=== PATIENT | female | born 1970 | race Caucasian/White ===

== ENCOUNTER 2017-07-25 13:12 | Inpatient (IN) ==
[2017-07-25 14:25] LABS: Basophils # 0.1 10*3/uL (0.0-0.2); Basophils % 0.4 % (0.0-0.8); Eosinophils # 0.1 10*3/uL (0.0-0.87); Eosinophils % 0.4 % (0.00-10.9); Hematocrit 43.8 VOL% (35.7-47.0); Hemoglobin 14.9 GM/DL (12.0-16.0); Immature Granulocytes % 0.2 %; Immature Granulocytes Absolute 0.03 #; Lymphocytes % 14.5 % (21.3-54.2); Mean Corpuscular Hemoglobin 32 PG (27-34); Mean Corpuscular Volume 94.6 FL (87-102); Mean Platelet Volume 10.7 FL (9.6-12.0); Monocytes # 0.5 10*3/uL (0.11-0.8); Monocytes % 3.7 % (1.7-12.7); Neutrophils # 11.2 10*3/uL (1.4-7.4); Neutrophils % 80.8 % (38.7-73.9); Platelet Count 317 T/CUMM (130-400); Red Blood Count 4.63 MC/CUMM (3.8-5.5); Red Cell Distribution Width 14.4 % (9.3-17.3); White Blood Count 13.9 T/CUMM (4-12)
[2017-07-25] MEDS ORDERED: ALBUTEROL NEB SOLN 5 MG/ML 20 ML/BOTTLE CONT NEB STA (14:31)
[2017-07-25] MEDS ORDERED: methylPREDNISolone SOD SUC 125 MG/2 ML VIAL IV STA (14:31)
[2017-07-25 14:49] LABS: Alanine Aminotransferase 12 U/L (13-56); Albumin 3.4 G/DL (3.4-5.0); Alkaline Phosphatase 66 U/L (45-117); Aspartate Amino Transferase 12 U/L (0-37); Bilirubin,Total < 0.39 MG/DL (0.2-1.0); Blood Urea Nitrogen 9 MG/DL (7-18); Calcium 8.8 MG/DL (8.5-10.1); Glucose 103 MG/DL (74-106); Osmolality,Calculated 281.1 MOS/KG (273-304); Sodium 142 MMOL/L (136-145); Total Protein 7.3 G/DL (6.4-8.3); Troponin I Only 0.037 NG/ML (0.00-0.045)
[2017-07-25 15:23] LABS: ABG Base Excess 1.8 MMOL/L (-2.5-2.5); ABG HCO3 25.2 MMOL/L (20-26); ABG Oxygen Saturation 64.3 % (95-100); ABG PCO2 42.9 MM HG (35-48); ABG PH 7.405 (7.35-7.45); ABG TCO2 23.3 MMOL/L (23-27)
[2017-07-25 15:36] LABS: ABG PO2 32.7 MM HG (80-95)
[2017-07-25] MEDS ORDERED: ONDANSETRON 4 MG/2 ML VIAL IV PRN (17:18)
[2017-07-25] MEDS ORDERED: MORPHINE 4 MG/1 ML VIAL IV PRN (17:18)
[2017-07-25] MEDS ORDERED: ALBUTEROL/IPRATROPIUM 3 ML NEB RESP TX PRN (19:01)
[2017-07-25] MEDS ORDERED: NICOTINE 21 MG/24 HR PATCH TRANSDERM PRN (19:03)
[2017-07-25] MEDS ORDERED: methylPREDNISolone SOD SUC 125 MG/2 ML VIAL IV ONE (20:05)
[2017-07-25 20:30] LABS: ABG HCO3 21.1 MMOL/L (20-26); ABG Oxygen Saturation 99.4 % (95-100); ABG PCO2 35.1 MM HG (35-48); ABG PH 7.374 (7.35-7.45); ABG TCO2 17.7 MMOL/L (23-27)
[2017-07-25] MEDS: ACETAMINOPHEN 325 MG TABLET PO PRN (20:50)
[2017-07-25] MEDS: SODIUM CHLORIDE 0.9% 1,000 ML IV SCH (20:54)
[2017-07-25] MEDS ORDERED: ENOXAPARIN 40 MG/0.4 ML SYRINGE SUBCUT SCH (21:00)
[2017-07-26] MEDS: ALBUTEROL/IPRATROPIUM 3 ML NEB RESP TX SCH ×4 (00:29→19:18)
[2017-07-26 01:12] LABS: Alanine Aminotransferase 13 U/L (13-56); Albumin 3.2 G/DL (3.4-5.0); Alkaline Phosphatase 59 U/L (45-117); Aspartate Amino Transferase 7 U/L (0-37); Bilirubin,Total < 0.39 MG/DL (0.2-1.0); Blood Urea Nitrogen 9 MG/DL (7-18); Glucose 192 MG/DL (74-106); Osmolality,Calculated 286.1 MOS/KG (273-304); Potassium 3.7 MMOL/L (3.5-5.1); Sodium 142 MMOL/L (136-145); Total Protein 7.1 G/DL (6.4-8.3)
[2017-07-26 01:17] LABS: Basophils % 0.1 % (0.0-0.8); Hematocrit 40.3 VOL% (35.7-47.0); Hemoglobin 13.3 GM/DL (12.0-16.0); Immature Granulocytes % 1.7 %; Immature Granulocytes Absolute 0.27 #; Lymphocytes # 0.7 10*3/uL (1.4-4.0); Lymphocytes % 4.5 % (21.3-54.2); Mean Corpuscular Hemoglobin 33 PG (27-34); Mean Corpuscular Volume 98.8 FL (87-102); Mean Platelet Volume 10.7 FL (9.6-12.0); Monocytes # 0.1 10*3/uL (0.11-0.8); Monocytes % 0.4 % (1.7-12.7); Neutrophils # 14.6 10*3/uL (1.4-7.4); Neutrophils % 93.3 % (38.7-73.9); Platelet Count 284 T/CUMM (130-400); Red Blood Count 4.08 MC/CUMM (3.8-5.5); Red Cell Distribution Width 14.3 % (9.3-17.3); White Blood Count 15.7 T/CUMM (4-12)
[2017-07-26 01:44] LABS: Band Neutrophils 14 % (0-10); Lymphocytes 2 % (20-55); Segmented Neutrophils 84 % (50-85); Total Cells Counted 100
[2017-07-26 04:20] LABS: ABG Base Excess -2.6 MMOL/L (-2.5-2.5); ABG PCO2 33.1 MM HG (35-48); ABG PO2 196.8 MM HG (80-95); Allen Test Positive
[2017-07-26] MEDS: SODIUM CHLORIDE 0.9% 1,000 ML IV SCH ×2 (04:42→07:32)
[2017-07-26] MEDS: methylPREDNISolone SOD SUC 125 MG/2 ML VIAL IV SCH ×2 (04:45→11:36)
[2017-07-26] MEDS: ACETAMINOPHEN 325 MG TABLET PO PRN (07:32)
[2017-07-26] MEDS ORDERED: ENOXAPARIN 40 MG/0.4 ML SYRINGE SUBCUT SCH (08:30)
[2017-07-26] MEDS: PANTOPRAZOLE 40 MG TABLET PO SCH (09:05)
[2017-07-26 10:22] LABS: Barbiturates Screen,Urine Negative (Negative); Benzodiazepines Screen,Urine Negative (Negative); Cannabinoid Screen,Urine Positive (Negative); Opiate Screen,Urine Negative (Negative); Phencyclidine Screen,Urine Negative (Negative)
[2017-07-26] MEDS ORDERED: FUROSEMIDE 20 MG/2 ML VIAL IV ONE (12:21)
[2017-07-26] MEDS: cefTRIAXone 1,000 MG in SYRINGE 1 EACH IV SCH (12:29)
[2017-07-26] MEDS: DILTIAZEM 30 MG TABLET PO SCH ×2 (14:49→22:10)
[2017-07-26] MEDS: ENOXAPARIN 80 MG/0.8 ML SYRINGE SUBCUT SCH (14:50)
[2017-07-26] MEDS ORDERED: methylPREDNISolone SOD SUC 125 MG/2 ML VIAL ONE (18:07)
[2017-07-26] MEDS ORDERED: DOXYLAMINE SUCCINATE 25 MG PO SCH (21:00)
[2017-07-27] MEDS: ALBUTEROL/IPRATROPIUM 3 ML NEB RESP TX SCH ×2 (00:23→08:19)
[2017-07-27] MEDS: methylPREDNISolone SOD SUC 125 MG/2 ML VIAL IV SCH ×2 (01:19→12:48)
[2017-07-27] MEDS: ENOXAPARIN 80 MG/0.8 ML SYRINGE SUBCUT SCH (04:10)
[2017-07-27 04:20] LABS: Basophils % 0.1 % (0.0-0.8); Hemoglobin 13.3 GM/DL (12.0-16.0); Immature Granulocytes % 0.7 %; Immature Granulocytes Absolute 0.18 #; Lymphocytes # 1.5 10*3/uL (1.4-4.0); Lymphocytes % 6.1 % (21.3-54.2); Mean Corpuscular HGB Conc 32.4 GM/DL (32-36); Mean Corpuscular Hemoglobin 32 PG (27-34); Mean Corpuscular Volume 97.6 FL (87-102); Mean Platelet Volume 11.1 FL (9.6-12.0); Monocytes # 0.5 10*3/uL (0.11-0.8); Monocytes % 2.2 % (1.7-12.7); Neutrophils # 22.3 10*3/uL (1.4-7.4); Neutrophils % 90.9 % (38.7-73.9); Platelet Count 278 T/CUMM (130-400); Red Cell Distribution Width 14.5 % (9.3-17.3); White Blood Count 24.6 T/CUMM (4-12)
[2017-07-27 04:34] LABS: ABG HCO3 26.2 MMOL/L (20-26); ABG Oxygen Saturation 98.4 % (95-100); ABG PCO2 40.6 MM HG (35-48); ABG PH 7.424 (7.35-7.45); Allen Test Positive
[2017-07-27 04:52] LABS: Calcium 9.1 MG/DL (8.5-10.1); Osmolality,Calculated 282.3 MOS/KG (273-304); Potassium 4.8 MMOL/L (3.5-5.1)
[2017-07-27 05:24] LABS: Lymphocytes 2 % (20-55); Segmented Neutrophils 97 % (50-85); Total Cells Counted 100
[2017-07-27 05:25] LABS: Platelet Estimate Normal
[2017-07-27] MEDS: DILTIAZEM 30 MG TABLET PO SCH (08:34)
[2017-07-27] MEDS: PANTOPRAZOLE 40 MG TABLET PO SCH (08:35)
[2017-07-27] MEDS: ACETAMINOPHEN 325 MG TABLET PO PRN (09:39)
[2017-07-27] MEDS ORDERED: APIXABAN 5 MG TABLET PO SCH (12:00)
[2017-07-27] MEDS ORDERED: DILTIAZEM CD 120 MG CAPSULE PO SCH (12:00)
[2017-07-27] MEDS: cefTRIAXone 1,000 MG in SYRINGE 1 EACH IV SCH (12:54)
[2017-07-27 14:19] VITALS: BP 151/94
== END 2017-07-27 14:12 | disposition home or self-care (01) | DRG 917 ==
LOC: N.ED 13:12 → N.EDINP 15:46 → SUATTDRO 15:46 → N.ICU 17:59
PROVIDERS: ADMIT Internal Medicine; ATTEND Internal Medicine

== ENCOUNTER 2021-11-24 06:48 | Inpatient (IN) ==
[2021-11-19 11:53] LABS: Basophils # 0.1 10*3/uL (0.0-0.2); Basophils % 0.4 % (0.0-0.8); Eosinophils # 0.1 10*3/uL (0.0-0.87); Eosinophils % 0.8 % (0.00-10.9); Hematocrit 43.6 VOL% (35.7-47.0); Hemoglobin 14.2 GM/DL (12.0-16.0); Immature Granulocytes % 0.7 %; Immature Granulocytes Absolute 0.08 #; Lymphocytes # 4.1 10*3/uL (1.4-4.0); Lymphocytes % 33.8 % (21.3-54.2); Mean Corpuscular HGB Conc 32.6 GM/DL (32-36); Mean Corpuscular Volume 96.5 FL (87-102); Mean Platelet Volume 9.8 FL (9.6-12.0); Monocytes # 0.4 10*3/uL (0.11-0.8); Monocytes % 3.1 % (1.7-12.7); Neutrophils % 61.2 % (38.7-73.9); Platelet Count 376 T/CUMM (130-400); Red Blood Count 4.52 MC/CUMM (3.8-5.5); Red Cell Distribution Width 14.1 % (9.3-17.3); White Blood Count 12.1 T/CUMM (4-12)
[2021-11-19 12:10] LABS: Alanine Aminotransferase 15 U/L (13-56); Albumin 3.3 G/DL (3.4-5.0); Alkaline Phosphatase 77 U/L (45-117); Aspartate Amino Transferase 7 U/L (0-37); Bilirubin,Total < 0.39 MG/DL (0.20-1.00); Blood Urea Nitrogen 12 MG/DL (7-18); Carbon Dioxide 25 MMOL/L (21-32); Chloride 106 MMOL/L (98-107); Glucose 220 MG/DL (74-106); Osmolality,Calculated 281.7 MOS/KG (273-304); Potassium 4.2 MMOL/L (3.5-5.1); Sodium 138 MMOL/L (136-145); Total Protein 7.1 G/DL (6.4-8.2)
[2021-11-19 12:26] LABS: Atypical Lymphocytes Few; Lymphocytes 30 % (20-55); Platelet Estimate Adequate; Total Cells Counted 100
[~2021-11-24 06:48] MED LIST: VANCOMYCIN INJ 1,000 MG in SODIUM CHLORIDE 0.9% 250 ML IV ONE
[2021-11-24] MEDS ORDERED: DIAZEPAM 5 MG TABLET PO ONE (07:10)
[2021-11-24 07:29] LABS: INR 0.9; PT Patient Result 10.5 SECS (10.1-12.1)
[2021-11-24] MEDS ORDERED: LACTATED RINGERS 1,000 ML IV SCH (08:00)
[2021-11-24] MEDS ORDERED: HEPARIN 5,000 UNIT/1 ML VIAL ONE (08:11)
[2021-11-24] MEDS ORDERED: ONDANSETRON 4 MG/2 ML VIAL ONE (08:26)
[2021-11-24] MEDS ORDERED: ROCURONIUM 50 MG/5 ML VIAL IV ONE (08:26)
[2021-11-24] MEDS ORDERED: ETOMIDATE 40 MG/20 ML VIAL IV ONE (08:26)
[2021-11-24] MEDS ORDERED: propofoL 200 MG/20 ML VIAL IV ONE (08:26)
[2021-11-24] MEDS ORDERED: fentaNYL 100 MCG/2 ML VIAL ONE (08:26)
[2021-11-24] MEDS ORDERED: LIDOCAINE 2% 5 ML VIAL ONE (08:26)
[2021-11-24] MEDS ORDERED: MIDAZOLAM 2 MG/2 ML VIAL ONE (08:26)
[2021-11-24] MEDS ORDERED: SEVOFLURANE 1 UNIT/15 MINUTE INH ONE (08:26)
[2021-11-24] MEDS ORDERED: ePHEDrine 50 MG/ML VIAL ONE (08:57)
[2021-11-24] MEDS ORDERED: GLYCOPYRROLATE 0.4 MG/2 ML VIAL ONE ×2 (09:02→09:40)
[2021-11-24] MEDS ORDERED: NEOSTIGMINE 10 MG/10 ML VIAL ONE (09:40)
[2021-11-24] MEDS ORDERED: PROTAMINE SULFATE 50 MG/5 ML VIAL IV ONE (09:48)
[2021-11-24] MEDS ORDERED: HEPARIN 10,000 UNIT/10 ML VIAL ONE (09:48)
[2021-11-24] MEDS ORDERED: TISSUE ADHESIVE 1 EACH APPLICATOR TOP ONE (10:04)
[2021-11-24] MEDS ORDERED: ONDANSETRON 4 MG/2 ML VIAL IV PRN (10:06)
[2021-11-24] MEDS ORDERED: HYDROmorphone 1 MG/1 ML SYRINGE IV PRN ×2 (10:06→10:32)
[2021-11-24] MEDS ORDERED: FUROSEMIDE 20 MG TABLET PO PRN (10:13)
[2021-11-24] MEDS ORDERED: PHENYLEPHRINE 1 MG/10 ML SYRINGE IV ONE (10:24)
[2021-11-24] MEDS ORDERED: CYCLOBENZAPRINE 10 MG TABLET PO PRN (15:00)
[2021-11-24] MEDS: GABAPENTIN 600 MG TABLET PO SCH ×2 (15:10→20:05)
[2021-11-24] MEDS: OMEGA 3 ACID ETHYL ESTERS 1 GM CAPSULE PO SCH (17:24)
[2021-11-24] MEDS ORDERED: WARFARIN 5 MG TABLET PO SCH (18:00)
[2021-11-24] MEDS: cilostazoL 50 MG TABLET PO SCH (20:05)
[2021-11-24] MEDS: CELECOXIB 200 MG CAPSULE PO SCH (20:06)
[2021-11-24] MEDS ORDERED: ATORVASTATIN 20 MG TABLET PO SCH (21:00)
[2021-11-25 05:03] LABS: Hematocrit 39.6 VOL% (35.7-47.0); Hemoglobin 12.4 GM/DL (12.0-16.0)
[2021-11-25 05:26] LABS: Calcium 8.9 MG/DL (8.5-10.1); Osmolality,Calculated 277.4 MOS/KG (273-304)
[2021-11-25 08:38] VITALS: BP 120/102
[2021-11-25] MEDS ORDERED: CLOPIDOGREL 75 MG TABLET PO SCH (09:00)
[2021-11-25] MEDS ORDERED: EZETIMIBE 10 MG TABLET PO SCH (09:00)
[2021-11-25] MEDS ORDERED: DILTIAZEM CD 120 MG CAPSULE PO SCH (09:00)
[2021-11-25] MEDS ORDERED: METOPROLOL SUCCINATE XL 100 MG TABLET PO SCH (09:00)
[2021-11-25] MEDS ORDERED: lisinopriL 10 MG TABLET PO SCH (09:00)
[2021-11-25] MEDS ORDERED: PANTOPRAZOLE 40 MG TABLET PO SCH (09:00)
[2021-11-25] MEDS: OMEGA 3 ACID ETHYL ESTERS 1 GM CAPSULE PO SCH (09:22)
[2021-11-25] MEDS: cilostazoL 50 MG TABLET PO SCH (09:22)
[2021-11-25] MEDS: CELECOXIB 200 MG CAPSULE PO SCH (09:22)
[2021-11-25] MEDS: GABAPENTIN 600 MG TABLET PO SCH (09:23)
[2021-11-26] MEDS ORDERED: POLYETHYLENE GLYCOL POWDER 17 GM PACK PO SCH (09:00)
== END 2021-11-25 11:15 | disposition home or self-care (01) | DRG 253 ==
LOC: N.SDSINP 06:48 → N.OR 06:48 → N.SDSINP 06:49 → N.3E 10:06 → N.OR 11-25 11:15 → N.3E 11-25 22:41
PROVIDERS: ADMIT Surgery; ATTEND Surgery